=== PATIENT | female | born 1955 | race African-American/Black ===

== ENCOUNTER 2018-05-25 17:59 | Emergency (ER) | payer OTHER, MEDICAID ==
[~2018-05-25] VITALS: Ht 162.6 cm; Wt 64.9 kg
[2018-05-25 18:02] VITALS: BP 146/94
[2018-05-25] MEDS ORDERED: MORPHINE SULFATE 4 MG/ML CPJ (NOT FOR IM USE) IV STA ×2 (18:41→20:02)
[2018-05-25] MEDS ORDERED: ONDANSETRON HCL 4MG/2ML VIAL IV STA ×2 (18:41→20:02)
[2018-05-25] MEDS ORDERED: SODIUM CHLORIDE 0.9% 1,000 ML IV ONE ×2 (18:41→20:02)
== END 2018-05-25 19:25 | disposition left against medical advice (07) ==
LOC: ER 17:59
DX: R10.9 Unspecified abdominal pain (principal); J45.909 Unspecified asthma, uncomplicated; E78.00 Pure hypercholesterolemia, unspecified; Z87.891 Personal history of nicotine dependence; Z88.1 Allergy status to other antibiotic agents
CPT/HCPCS: 99283; J7030; 99281